=== PATIENT | male | born 1960 | race Caucasian/White ===

== ENCOUNTER → 2025-09-21 | Outpatient (CLI) | payer BC, SELFPAY ==
--- NOTE | 2025-09-21 10:00 | XR_ITS ---
Examination: Pelvic ultrasound, transabdominal, complete Technique: Transabdominal ultrasound of the pelvis performed using grayscale imaging Date and time of exam: September 21, 2025, 1008 hours INDICATIONS: Left groin pain beginning 3 weeks ago. FINDINGS: No cystic or solid mass in the groin No bladder mass or bladder calculi Prostate volume 31.9 cc no prostate nodule IMPRESSION: No pelvic or groin mass noted
== END | disposition home or self-care (01) ==
PROVIDERS: PCP Nurse Practitioner Family; Referring Provider Nurse Practitioner Family; Visit Provider Nurse Practitioner Family
DX: R10.32 Left lower quadrant pain (principal)
CPT/HCPCS: 76856